=== PATIENT | male | born 1955 ===

== ENCOUNTER 2018-02-10 19:57 | Inpatient (IN) | payer OTHER ==
[2018-02-10] MEDS ORDERED: CARISOPRODOL 350 MG TAB PO (21:30)
[2018-02-10] MEDS ORDERED: ACETAMINOPHEN 325 MG TAB PO (21:30)
[2018-02-10] MEDS ORDERED: ALBUTEROL/IPRATROPIUM (NEB) 3 ML AMP HHN (21:30)
[2018-02-10] MEDS: CEFTRIAXONE 1 GM/50 ML (PMX) 50 ML IVPB (21:47)
[2018-02-10] MEDS: HYDROCODONE/APAP (10/325) TAB PO (21:48)
[2018-02-10] MEDS: hydrOXYzine HCL 10 MG TAB PO (22:15)
[2018-02-11] MEDS ORDERED: ALBUTEROL 0.083% (NEB) 2.5 MG/3 ML AMP NEB (02:00)
[2018-02-11] MEDS: PANTOPRAZOLE (EC) 40 MG TAB PO (05:50)
[2018-02-11] MEDS: LISINOPRIL 20 MG TAB PO (08:27)
[2018-02-11] MEDS: FLUTICASONE/VILANTEROL 100-25 INH (08:28)
[2018-02-11 08:51] LABS: ADD MAN DIFF? NO
[2018-02-11 08:53] LABS: BASOPHILS % 0.2 % (0.0-2.0); HEMATOCRIT 36.3 % (42.0-52.0); LYMPHOCYTES # 1.7 10^3/ul (0.8-2.9); LYMPHOCYTES % 10.7 % (15.0-51.0); MEAN CORPUSCULAR HGB CONC 33.1 g/dl (32.0-37.0); MEAN CORPUSCULAR VOLUME 93.8 fl (82.0-101.0); MONOCYTE # 0.9 10^3/ul (0.3-0.9); MONOCYTES % 5.6 % (0.0-11.0); NEUTROPHIL # 13.4 10^3/ul (1.6-7.5); NEUTROPHILS % 83.1 % (39.0-77.0); PLATELET COUNT 286 10^3/UL (140-415); RED BLOOD COUNT 3.87 10^6/ul (4.70-6.10); RED CELL DISTRIBUTION WIDTH 13.2 % (11.5-14.5)
[2018-02-11 08:53] LABS: WHITE BLOOD COUNT 16.1 10^3/ul (4.8-10.8)
[2018-02-11] MEDS: THEOPHYLLINE (SR) 300 MG TAB PO ×2 (09:00→21:38)
[2018-02-11 09:14] LABS: ALANINE AMINOTRANSFERASE 24 IU/L (13-69); ALBUMIN 3.7 g/dl (3.3-4.9); ALBUMIN/GLOBULIN RATIO 1.12; ALKALINE PHOSPHATASE 73 IU/L (42-121); ANION GAP 9 (5-13); ASPARTATE AMINO TRANSFERASE 24 IU/L (15-46); BILIRUBIN,INDIRECT 0.2 mg/dl (0-1.1); BILIRUBIN,TOTAL 0.2 mg/dl (0.2-1.3); BLOOD UREA NITROGEN 11 mg/dl (7-20); CALCIUM 9.3 mg/dl (8.4-10.2); CARBON DIOXIDE 27 mmol/L (21-31); CHLORIDE 106 mmol/L (97-110); CREATININE 0.68 mg/dl (0.61-1.24); Estimated GFR > 60 mL/min (>60); GLUCOSE 184 mg/dl (70-220); POTASSIUM 4.7 mmol/L (3.5-5.1); SODIUM 142 mmol/L (135-144)
[2018-02-11] MEDS: HYDROCODONE/APAP (10/325) TAB PO ×2 (12:54→21:38)
[2018-02-11] MEDS ORDERED: VANCOMYCIN IV PER PHARMACY XX (16:30)
[2018-02-11] MEDS: VANCOMYCIN 2 GM in SOD CHLORIDE 0.9% 500 ML IVPB (18:14)
[2018-02-11] MEDS: METHYLPREDNISOLONE 40 MG INJ IV (21:37)
[2018-02-11] MEDS: hydrOXYzine HCL 10 MG TAB PO (21:38)
[2018-02-12] MEDS: METHYLPREDNISOLONE 40 MG INJ IV ×2 (06:01→14:32)
[2018-02-12] MEDS: PANTOPRAZOLE (EC) 40 MG TAB PO (06:02)
[2018-02-12] MEDS: VANCOMYCIN 1.25 GM in SOD CHLORIDE 0.9% 250 ML IVPB ×3 (06:02→18:48)
[2018-02-12] MEDS: THEOPHYLLINE (SR) 300 MG TAB PO ×3 (09:00→22:26)
[2018-02-12] MEDS: LISINOPRIL 20 MG TAB PO (10:02)
[2018-02-12] MEDS: FLUTICASONE/VILANTEROL 100-25 INH (10:03)
[2018-02-12 11:10] LABS: ADD MAN DIFF? NO
[2018-02-12 11:12] LABS: BASOPHILS % 0.1 % (0.0-2.0); HEMATOCRIT 34.1 % (42.0-52.0); HEMOGLOBIN 11.3 g/dl (14.0-18.0); LYMPHOCYTES # 1.2 10^3/ul (0.8-2.9); LYMPHOCYTES % 7.8 % (15.0-51.0); MEAN CORPUSCULAR HEMOGLOBIN 31.6 pg (29.0-33.0); MEAN CORPUSCULAR HGB CONC 33.1 g/dl (32.0-37.0); MEAN CORPUSCULAR VOLUME 95.3 fl (82.0-101.0); MEAN PLATELET VOLUME 9.1 fl (7.4-10.4); MONOCYTE # 0.4 10^3/ul (0.3-0.9); MONOCYTES % 2.4 % (0.0-11.0); NEUTROPHILS % 88.3 % (39.0-77.0); PLATELET COUNT 253 10^3/UL (140-415); RED BLOOD COUNT 3.58 10^6/ul (4.70-6.10); RED CELL DISTRIBUTION WIDTH 13.2 % (11.5-14.5)
[2018-02-12 11:12] LABS: WHITE BLOOD COUNT 14.8 10^3/ul (4.8-10.8)
[2018-02-12] MEDS ORDERED: VITAMIN A & D 5 GM OINT PACKET TOP (11:30)
[2018-02-12 11:36] LABS: MAGNESIUM 1.8 mg/dl (1.7-2.5)
[2018-02-12 11:36] LABS: PHOSPHORUS 2.1 mg/dl (2.5-4.9)
[2018-02-12 11:38] LABS: ANION GAP 9 (5-13); BLOOD UREA NITROGEN 15 mg/dl (7-20); CALCIUM 9.2 mg/dl (8.4-10.2); CARBON DIOXIDE 24 mmol/L (21-31); CHLORIDE 104 mmol/L (97-110); CREATININE 0.73 mg/dl (0.61-1.24); Estimated GFR > 60 mL/min (>60); GLUCOSE 321 mg/dl (70-220); POTASSIUM 4.5 mmol/L (3.5-5.1); SODIUM 137 mmol/L (135-144)
[2018-02-12] MEDS: HYDROCODONE/APAP (10/325) TAB PO ×2 (13:51→22:26)
[2018-02-12] MEDS: BACITRACIN 0.5%/ZINC 28.35 GM OINT TOP ×2 (15:43→20:59)
[2018-02-12] MEDS: TRIAMCINOLONE ACET 0.1% 60 ML LOT TOP ×2 (15:43→21:00)
[2018-02-12] MEDS ORDERED: GLUCAGON 1 MG INJ IM (16:00)
[2018-02-12] MEDS ORDERED: DEXTROSE 50% 50 ML SYRINGE IV ×2 (16:00)
[2018-02-12] MEDS ORDERED: GLUCOSE GEL 15 GRAM TUBE BUCCAL (16:00)
[2018-02-12] MEDS ORDERED: GLUCOSE GEL 15 GRAM TUBE PO ×2 (16:00)
[2018-02-12] MEDS: INSULIN ASPART [NOVOLOG] 3 ML PEN SC ×3 (18:00→21:00)
[2018-02-12] MEDS: EUCERIN 113 GM CR TOP ×2 (18:05→21:00)
[2018-02-12] MEDS: NEUTRA-PHOS 250 MG PACKET PO (18:06)
[2018-02-13] MEDS: ACCU-CHEK XX (02:11)
[2018-02-13] MEDS: hydrOXYzine HCL 10 MG TAB PO (02:24)
[2018-02-13] MEDS: VANCOMYCIN 1.25 GM in SOD CHLORIDE 0.9% 250 ML IVPB ×2 (06:27→18:34)
[2018-02-13] MEDS: PANTOPRAZOLE (EC) 40 MG TAB PO (06:27)
[2018-02-13] MEDS: INSULIN ASPART [NOVOLOG] 3 ML PEN SC ×4 (08:00→20:57)
[2018-02-13] MEDS: THEOPHYLLINE (SR) 300 MG TAB PO ×2 (08:25→20:58)
[2018-02-13] MEDS: METHYLPREDNISOLONE 40 MG INJ IV (08:25)
[2018-02-13] MEDS: FLUTICASONE/VILANTEROL 100-25 INH (08:26)
[2018-02-13] MEDS: LISINOPRIL 20 MG TAB PO (08:26)
[2018-02-13] MEDS: EUCERIN 113 GM CR TOP ×2 (08:27→21:07)
[2018-02-13] MEDS: TRIAMCINOLONE ACET 0.1% 60 ML LOT TOP ×3 (08:27→21:07)
[2018-02-13] MEDS: BACITRACIN 0.5%/ZINC 28.35 GM OINT TOP ×2 (08:28→20:59)
[2018-02-13] MEDS: SOD PHOS MONO/DIBAS 250 MG TAB PO (13:25)
[2018-02-13 17:54] LABS: VANCOMYCIN,TROUGH 7.5 ug/ml (10.0-20.0)
[2018-02-13] MEDS: HYDROCODONE/APAP (10/325) TAB PO (21:06)
[2018-02-14] MEDS: hydrOXYzine HCL 10 MG TAB PO ×2 (01:21→21:46)
[2018-02-14] MEDS: VANCOMYCIN 1 GM 250 ML IVPB ×2 (02:00→12:45)
[2018-02-14] MEDS: ACCU-CHEK XX (02:00)
[2018-02-14] MEDS: PANTOPRAZOLE (EC) 40 MG TAB PO (06:45)
[2018-02-14] MEDS: INSULIN ASPART [NOVOLOG] 3 ML PEN SC ×4 (08:00→21:42)
[2018-02-14] MEDS: METHYLPREDNISOLONE 40 MG INJ IV (08:02)
[2018-02-14] MEDS: THEOPHYLLINE (SR) 300 MG TAB PO ×2 (08:02→21:35)
[2018-02-14] MEDS: LISINOPRIL 20 MG TAB PO ×2 (08:03→21:36)
[2018-02-14] MEDS: FLUTICASONE/VILANTEROL 100-25 INH (08:03)
[2018-02-14] MEDS: TRIAMCINOLONE ACET 0.1% 60 ML LOT TOP ×3 (08:04→21:39)
[2018-02-14] MEDS: BACITRACIN 0.5%/ZINC 28.35 GM OINT TOP ×2 (08:05→21:39)
[2018-02-14] MEDS: EUCERIN 113 GM CR TOP ×2 (08:05→21:39)
[2018-02-14 09:20] LABS: ADD MAN DIFF? NO
[2018-02-14 09:23] LABS: ABNORMAL IP MESSAGE 1; BASOPHIL # 0.1 10^3/ul (0.0-0.1); BASOPHILS % 0.3 % (0.0-2.0); EOSINOPHILS # 0.1 10^3/ul (0.0-0.5); EOSINOPHILS % 0.3 % (0.0-7.0); HEMATOCRIT 36.9 % (42.0-52.0); HEMOGLOBIN 12.2 g/dl (14.0-18.0); LYMPHOCYTES # 3.4 10^3/ul (0.8-2.9); LYMPHOCYTES % 19.4 % (15.0-51.0); MEAN CORPUSCULAR HEMOGLOBIN 31.1 pg (29.0-33.0); MEAN CORPUSCULAR HGB CONC 33.1 g/dl (32.0-37.0); MEAN CORPUSCULAR VOLUME 94.1 fl (82.0-101.0); MEAN PLATELET VOLUME 9.5 fl (7.4-10.4); MONOCYTE # 1.7 10^3/ul (0.3-0.9); MONOCYTES % 9.9 % (0.0-11.0); NEUTROPHIL # 11.7 10^3/ul (1.6-7.5); NEUTROPHILS % 67.6 % (39.0-77.0); PLATELET COUNT 286 10^3/UL (140-415); POSITIVE DIFF @See below; RED BLOOD COUNT 3.92 10^6/ul (4.70-6.10); RED CELL DISTRIBUTION WIDTH 12.9 % (11.5-14.5)
[2018-02-14 09:23] LABS: WHITE BLOOD COUNT 17.3 10^3/ul (4.8-10.8)
[2018-02-14 09:59] LABS: ANION GAP 10 (5-13); BLOOD UREA NITROGEN 21 mg/dl (7-20); CALCIUM 9.6 mg/dl (8.4-10.2); CARBON DIOXIDE 31 mmol/L (21-31); CHLORIDE 100 mmol/L (97-110); CREATININE 0.73 mg/dl (0.61-1.24); Estimated GFR > 60 mL/min (>60); GLUCOSE 89 mg/dl (70-220); POTASSIUM 4.1 mmol/L (3.5-5.1); SODIUM 141 mmol/L (135-144)
[2018-02-14 10:37] LABS: HEMOGLOBIN A1C 5.6 % (0-5.9)
[2018-02-14] MEDS: DOXYCYCLINE 100 MG TAB PO ×2 (14:07→21:36)
[2018-02-15] MEDS: ACCU-CHEK XX (01:43)
[2018-02-15] MEDS: PANTOPRAZOLE (EC) 40 MG TAB PO (06:53)
[2018-02-15] MEDS: INSULIN ASPART [NOVOLOG] 3 ML PEN SC ×2 (08:00→12:00)
[2018-02-15] MEDS: FLUTICASONE/VILANTEROL 100-25 INH (09:02)
[2018-02-15] MEDS: THEOPHYLLINE (SR) 300 MG TAB PO (09:05)
[2018-02-15] MEDS: predniSONE 10 MG TAB PO (09:06)
[2018-02-15] MEDS: LISINOPRIL 20 MG TAB PO (09:07)
[2018-02-15] MEDS: DOXYCYCLINE 100 MG TAB PO (09:07)
[2018-02-15] MEDS: BACITRACIN 0.5%/ZINC 28.35 GM OINT TOP (09:08)
[2018-02-15] MEDS: TRIAMCINOLONE ACET 0.1% 60 ML LOT TOP ×2 (09:12→13:00)
[2018-02-15] MEDS: EUCERIN 113 GM CR TOP (09:13)
[2018-02-15 09:24] LABS: ADD MAN DIFF? NO
[2018-02-15 09:29] LABS: WHITE BLOOD COUNT 18.1 10^3/ul (4.8-10.8)
[2018-02-15 09:29] LABS: ABNORMAL IP MESSAGE 1; BASOPHIL # 0.1 10^3/ul (0.0-0.1); BASOPHILS % 0.4 % (0.0-2.0); EOSINOPHILS # 0.1 10^3/ul (0.0-0.5); EOSINOPHILS % 0.6 % (0.0-7.0); HEMATOCRIT 38.2 % (42.0-52.0); HEMOGLOBIN 12.8 g/dl (14.0-18.0); LYMPHOCYTES # 4.2 10^3/ul (0.8-2.9); MEAN CORPUSCULAR HEMOGLOBIN 31.4 pg (29.0-33.0); MEAN CORPUSCULAR HGB CONC 33.5 g/dl (32.0-37.0); MEAN CORPUSCULAR VOLUME 93.6 fl (82.0-101.0); MEAN PLATELET VOLUME 9.2 fl (7.4-10.4); MONOCYTE # 1.5 10^3/ul (0.3-0.9); MONOCYTES % 8.5 % (0.0-11.0); NEUTROPHIL # 11.5 10^3/ul (1.6-7.5); NEUTROPHILS % 63.6 % (39.0-77.0); PLATELET COUNT 304 10^3/UL (140-415); POSITIVE DIFF @See below; RED BLOOD COUNT 4.08 10^6/ul (4.70-6.10); RED CELL DISTRIBUTION WIDTH 12.8 % (11.5-14.5)
[2018-02-15 09:49] LABS: PHOSPHORUS 3.9 mg/dl (2.5-4.9)
[2018-02-15 09:49] LABS: MAGNESIUM 1.7 mg/dl (1.7-2.5)
[2018-02-15 09:50] LABS: ANION GAP 9 (5-13); BLOOD UREA NITROGEN 25 mg/dl (7-20); CALCIUM 9.4 mg/dl (8.4-10.2); CARBON DIOXIDE 28 mmol/L (21-31); CHLORIDE 101 mmol/L (97-110); CREATININE 0.72 mg/dl (0.61-1.24); Estimated GFR > 60 mL/min (>60); GLUCOSE 120 mg/dl (70-220); POTASSIUM 4.2 mmol/L (3.5-5.1); SODIUM 138 mmol/L (135-144)
[2018-02-15] MEDS: HYDROCODONE/APAP (10/325) TAB PO (10:47)
== END 2018-02-15 16:10 | disposition home or self-care (01) | DRG 603 ==
LOC: 2NE 19:57
DX: L03.114 Cellulitis of left upper limb (principal); L03.116 Cellulitis of left lower limb; L03.115 Cellulitis of right lower limb; R65.10 Systemic inflammatory response syndrome (SIRS) of non-infectious origin without acute organ dysfunction; L30.9 Dermatitis, unspecified; E11.9 Type 2 diabetes mellitus without complications; I10 Essential (primary) hypertension; J44.9 Chronic obstructive pulmonary disease, unspecified; M19.90 Unspecified osteoarthritis, unspecified site; Z85.828 Personal history of other malignant neoplasm of skin; Z87.891 Personal history of nicotine dependence
CPT/HCPCS: 80048; 80053; 80202; 82962; 83036; 83735; 84100; 85025